=== PATIENT | male | born 1985 | race Caucasian/White ===

== ENCOUNTER 2019-02-20 10:44 | Emergency (ER) | payer MEDICARE, BC, MEDICAID ==
--- OUTSIDE RECORDS SUMMARY | 2019-02-20 10:50 | XMS REPORT | Continuity of Care Document ---
:1985 External Reference #:[id number] Author Name Rigo Roth NP (transmitted by agent of provider Kassy Ceja) Address [address], [place] [address] Care Team Providers Name Role Phone Asa Montano M.D. - Family Medicine Care Team Information [employer] [phone] Chris Robertson MD - Endocrinology, Care Team Information [employer] Diabetes & Metabolism Problems Active Problems Provider Date Localization-related epilepsy Everette Sharpe M.D. Onset: 02/28/2014 Social History Type Date Description Comments Sex Unknown ETOH Use Denies alcohol use Tobacco Use Start: Unknown Patient has never smoked Smoking Status Reviewed: 02/15/19 Patient has never smoked Allergies, Adverse Reactions, Alerts Active Allergies Reaction Severity Comments Date Gabapentin caused bladder retention. 11/16/2018 Lamictal severe shaking 12/21/2018 Inactive Allergies NKDA 02/24/2012 Medications Active Medications SIG Qnty Indications Ordering Provider Date Oxcarbazepine Take three tabs 120tabs G50.0 Rigo Roth NP 02/15/2019 300mg po twice a day Tablets Levetiracetam 1 by mouth 180tabs Everette Sharpe, 500mg twice a day [place]man Tablets Myrbetriq in tab in am Unknown 25mg Tablets ER for one week, 24HR if no better take 2 tabs in am daily History Medications Oxcarbazepine Take two in am and 120tabs Everette Ledesma 12/21/2018 - 300mg two in pm Don Sharpe 02/15/2019 Tablets Lamotrigine Take 2 tablets po 49tabs Everette Ledesma 11/16/2018 - 25mg Tablets bid a day for 1 Don Sharpe 12/20/2018 week, then 1 tablets bid for 1 week, then 1 tab daily for 1 week, then discontinue Oxcarbazepine take one tab po 77tabs Everette Ledesma 11/16/2018 - 150mg daily for one week, Don Sharpe 12/21/2018 Tablets one tab po bid for one week, then take two tabs twice a day Lamotrigine take one tab by 60tabs Everette Ledesma 10/30/2018 - 100mg Tablets mouth twice a day. Don Sharpe 11/16/2018 Lamotrigine 2 tabs (50 MG) 140tatrinidad Ledesma 10/30/2018 - 25mg Tablets twice a day for 2 Don Sharpe 11/05/2018 weeks, then 2 tabs (50 MG) in the Am and 4 tabs (100 MG) in the PM, will switch to 100 MG tabs next refill Lamotrigine 2 tabs (50 MG) 140tatrinidad Ledesma 10/02/2018 - 25mg Tablets twice a day for 2 Don Sharpe 10/30/2018 weeks, then 2 tabs (50 MG) in the Am and 4 tabs (100 MG) in the PM, will switch to 100 MG tabs next refill Lamotrigine Starter Take as directed. 49units vEerette Ledesma 09/25/2018 - Kit-Alcorn Don Sharpe 10/02/2018 42x 25 mg & 7 x 100 mg Kit Lamotrigine take 2 tabs 42tabs Everette Ledesma 09/04/2018 - 25mg Tablets Don Sharpe 10/02/2018 Gabapentin take 1 cap po in 70caps Everette Ledesma 08/27/2018 - 300mg Capsules the am, 1 cap at Don Sharpe 11/05/2018 noon, and 2 caps at hs for 1 wk, 1 cap tid for 1 wk,1 cap bid for 1 wk, 1 cap daily for 1 wk then dc Immunizations Description No Information Available Vital Signs Date Vital Result Comment 02/15/2019 2:26pm Height 67 inches 5'7" Weight 128.25 lb Heart Rate 96 /min BP Systolic Sitting 128 mmHg BP Diastolic Sitting 70 mmHg BMI (Body Mass Index) 20.1 kg/m2 12/21/2018 11:47am Height 67 inches 5'7" Weight 130.75 lb Heart Rate 76 /min BP Systolic Sitting 110 mmHg BP Diastolic Sitting 80 mmHg Respiratory Rate 20 /min BMI (Body Mass Index) 20.5 kg/m2 Results Test Acquired Date Facility Test Result H/L Range Note CBC Auto 01/11/2019 [facility] White Blood 6.3 10^3/uL Normal 3.5-10.[address] [place] [address] [phone] Red Blood Count 5.42 10^6/uL Normal 4.18-5.48 Hemoglobin 16.9 g/dL Normal 14.0-18.0 Hematocrit 47 % Normal 42-52 Mean Corpuscular Volume 87 fL Normal 80-94 Mean Corpuscular Hemoglobin 31 pg Normal 27-31 Mean Corpuscular HGB Conc 36 g/dL Normal 31-36 Red Cell Distribution Width 14 % Normal 10-15 Platelet Count 248 10^3/uL Normal 150-450 Mean Platelet Volume 8.8 fL Normal 7.4-10.4 Abs Neutrophils 4.0 10^3/uL Normal 1.5-7.7 Abs Lymphocytes 1.6 10^3/uL Normal 1.0-4.8 Abs Monocytes 0.5 10^3/uL Normal 0-0.8 Abs Eosinophils 0.1 10^3/uL Normal 0-0.6 Abs Basophils 0.1 10^3/uL Normal 0-0.2 Abs Nucleated RBC 0.0 10^3/uL Granulocyte % 63.6 % Lymphocyte % 24.8 % Monocyte % 8.8 % Eosinophil % 1.7 % Basophil % 1.1 % Nucleated Red Blood Cells % 0.2 Comp Metabolic 01/11/2019 [facility] Sodium 141 mmol/L Normal 135-[address] [place] [address] [phone] Potassium 4.2 mmol/L Normal 3.5-5.0 Chloride 104 mmol/L Normal 101-111 Co2 Carbon Dioxide 29 mmol/L Normal 22-32 Anion Gap 8 mmol/L Normal 2-11 Glucose 74 mg/dL Normal 70-100 Blood Urea Nitrogen 10 mg/dL Normal 6-24 Creatinine 0.77 mg/dL Normal 0.67-1.17 BUN/Creatinine Ratio 13.0 Normal 8-20 Calcium 9.9 mg/dL Normal 8.6-10.3 Total Protein 7.6 g/dL Normal 6.4-8.9 Albumin 4.6 g/dL Normal 3.2-5.2 Globulin 3.0 g/dL Normal 2-4 Albumin/Globulin Ratio 1.5 Normal 1-3 Total Bilirubin 0.40 mg/dL Normal 0.2-1.0 Alkaline Phosphatase 88 U/L Normal 34-104 Alt 17 U/L Normal 7-52 Ast 13 U/L Normal 13-39 Egfr Non- 117.1 >60 Egfr 141.7 >60 1 Laboratory test 01/11/2019 [facility] Trileptal 19 g/mL 3 - 35 [address] (Oxcarbazepine) [place] [address] [phone] Urinalysis 08/30/2018 [facility] Urine Color Yellow Profile [address] [place] [address] [phone] Urine Appearance Clear Urine Specific [place] 1.016 Normal 1.010-1.030 Urine pH 6.0 Normal 5-9 Urine Urobilinogen Negative Negative Urine Ketones Negative Negative Urine Protein Negative Negative Urine Leukocytes Negative Negative Urine Blood Negative Negative Urine Nitrite Negative Negative Urine Bilirubin Negative Negative Urine Glucose Negative Negative CBC Auto 08/29/2018 [facility] White Blood 6.3 10^3/uL Normal 3.5-10.[address] [place] [address] [phone] Red Blood Count 5.22 10^6/uL Normal 4.18-5.48 Hemoglobin 16.0 g/dL Normal 14.0-18.0 Hematocrit 45 % Normal 42-52 Mean Corpuscular Volume 86 fL Normal 80-94 Mean Corpuscular Hemoglobin 31 pg Normal 27-31 Mean Corpuscular HGB Conc 36 g/dL Normal 31-36 Red Cell Distribution Width 13 % Normal 10-15 Platelet Count 213 10^3/uL Normal 150-450 Mean Platelet Volume 8.5 fL Normal 7.4-10.4 Abs Neutrophils 4.1 10^3/uL Normal 1.5-7.7 Abs Lymphocytes 1.5 10^3/uL Normal 1.0-4.8 Abs Monocytes 0.5 10^3/uL Normal 0-0.8 Abs Eosinophils 0.1 10^3/uL Normal 0-0.6 Abs Basophils 0.1 10^3/uL Normal 0-0.2 Abs Nucleated RBC 0.0 10^3/uL Granulocyte % 64.7 % Lymphocyte % 24.2 % Monocyte % 8.5 % Eosinophil % 1.4 % Basophil % 1.2 % Nucleated Red Blood Cells % 0.0 Comp Metabolic 08/29/2018 [facility] Sodium 140 mmol/L Normal 135-[address] [place] [address] [phone] Potassium 3.9 mmol/L Normal 3.5-5.0 Chloride 105 mmol/L Normal 101-111 Co2 Carbon Dioxide 28 mmol/L Normal 22-32 Anion Gap 7 mmol/L Normal 2-11 Glucose 84 mg/dL Normal 70-100 Blood Urea Nitrogen 10 mg/dL Normal 6-24 Creatinine 0.74 mg/dL Normal 0.67-1.17 BUN/Creatinine Ratio 13.5 Normal 8-20 Calcium 9.6 mg/dL Normal 8.6-10.3 Total Protein 7.5 g/dL Normal 6.4-8.9 Albumin 4.6 g/dL Normal 3.2-5.2 Globulin 2.9 g/dL Normal 2-4 Albumin/Globulin Ratio 1.6 Normal 1-3 Total Bilirubin 0.70 mg/dL Normal 0.2-1.0 Alkaline Phosphatase 71 U/L Normal 34-104 Alt 19 U/L Normal 7-52 Ast 13 U/L Normal 13-39 Egfr Non- 122.6 >60 Egfr 148.3 >60 3 1 Because ethnic data is not always readily available, this report includes an eGFR for both -Americans and non- Americans. The National Kidney Disease Education Program (NKDEP) does not endorse the use of the MDRD equation for patients that are not between the ages of 18 and 70, are , have extremes of body size, muscle mass, or nutritional status, or are non- or non-. According to the National Kidney Foundation, irrespective of diagnosis, the stage of the disease is based on the level of kidney function: Stage Description GFR(mL/min/1.73 m(2)) 1 Kidney damage with normal or decreased GFR 90 2 Kidney damage with mild decrease in GFR 60-89 3 Moderate decrease in GFR 30-59 4 Severe decrease in GFR 15-29 5 Kidney failure <15 (or dialysis) 2 ADDITIONAL INFORMATION This test was developed and its performance characteristics determined by [facility] in a manner consistent with CLIA requirements. This test has not been cleared or approved by the U.S. Food and Drug Administration. Test Performed by: [facility] [address] [place] [address] Camp Boss: Alli Turner M.D. Ph.D.; CLIA# [id number] 3 Because ethnic data is not always readily available, this report includes an eGFR for both -Americans and non- Americans. The National Kidney Disease Education Program (NKDEP) does not endorse the use of the MDRD equation for patients that are not between the ages of 18 and 70, are , have extremes of body size, muscle mass, or nutritional status, or are non- or non-. According to the National Kidney Foundation, irrespective of diagnosis, the stage of the disease is based on the level of kidney function: Stage Description GFR(mL/min/1.73 m(2)) 1 Kidney damage with normal or decreased GFR 90 2 Kidney damage with mild decrease in GFR 60-89 3 Moderate decrease in GFR 30-59 4 Severe decrease in GFR 15-29 5 Kidney failure <15 (or dialysis) Procedures Description No Information Available Medical Devices Description No Information Available Encounters Type Date Location Provider Dx Diagnosis Office Visit 12/21/2018 [facility] Rigo Roth NP G50.0 Trigeminal 11:30a neuralgia Z87.820 Personal history of traumatic brain injury Office Visit 11/16/2018 [facility] Rigo Roth G50.0 Trigeminal 2:00p Clinic [facility] neuralgia Office Visit 09/04/2018 [facility] R[facility] Roth G50.0 Trigeminal 11:30a Clinic [facility] neuralgia Assessments Date Code Description Provider 02/15/2019 G50.0 Trigeminal neuralgia Riog Roth NP 12/21/2018 G50.0 Trigeminal neuralgia Rigo Roth NP 12/21/2018 Z87.820 Personal history of traumatic brain injury Rigo Roth NP 11/16/2018 G50.0 Trigeminal neuralgia Rigo Roth NP 09/04/2018 G50.0 Trigeminal neuralgia Rigo Roth NP Plan of Treatment Future Appointment(s):03/29/2019 11:00 am - Rigo Roth NP at [id number]/15/2019 - Rigo Roth NPG50.0 Trigeminal neuralgiaNew Medication: Oxcarbazepine 300 mg - Take three tabs po twice a dayFollow up:ONE MONTH. Please schedule with me and Dr. Sharpe.Recommendations:Will discuss with Dr. hSarpe. Functional Status Description No Information Available Mental Status Description No Information Available Referrals Description No Information Available
--- NOTE | 2019-02-20 10:51 | ED ---
Complex/Multi-Sys Presentation - HPI Summary HPI Summary: 33 y/o male presented to [facility] by [facility] with a complaint from parents of seizure-like symptoms beginning this morning at 0930, after medications were taken at 0830. Family states pt was "out of it" for about 15 minutes and would respond to his name by looking but could not keep attention on his parents. Pt states he can walk normally, vision is normal, and that he has been coughing for the past couple of days. Pt denies BURNS, CP, SOB, abd pain, N/V, or dysuria. He states nothing is currently bothering him. In the ambulance , his vitals were normal, he was stable, and he was A&Ox3. Pt has no Hx of diabetes and no catheter, but has a TBI from 1994, a cerebral shunt, and recent Dx of a trigeminal nerve condition. Medications reviewed; side effects include chronic shaking from medications he takes for nerve pain as well as constipation and overactive bladder. He has had no Sz since 2011, his last normal BM was yesterday morning 02/19/19, and he ate breakfast today. He sees Dr. Sharpe for his neural issues. - History Of Current Complaint Hx Obtained From: Patient, Family/Deputy County Clerk - mother, father Onset/Duration: Sudden Onset, Resolved Timing: Minutes - 15 Severity Currently: None Location: Negative Associated Signs And Symptoms: Positive: Cough - days. Negative: Headache, SOB , Chest Pain, Nausea, Vomiting, Abdominal Pain, Dysuria - Allergies/Home Medications Allergies/Adverse Reactions: Allergies Allergy/AdvReac Type Severity Reaction Status Date / Time carbamazepine [From Tegretol] Allergy See Comment Verified 02/20/19 11:06 gabapentin Allergy See Comment Verified 02/20/19 11:06 lamotrigine [From Lamictal] Allergy Shakes Verified 02/20/19 11:06 Home Medications: Home Medications Mirabegron (NF) [Myrbetriq (NF)] 25 mg PO DAILY 02/20/19 [History Confirmed ] OXcarbazepine TAB(*) [Trileptal 300 mg TAB(*)] 600 mg PO QPM 02/20/19 [History Confirmed 02/20/19] OXcarbazepine TAB(*) [Trileptal 300 mg TAB(*)] 900 mg PO QAM 02/20/19 [History Confirmed 02/20/19] Polyethylene Glycol 3350* [Miralax*] 17 gm PO DAILY 02/20/19 [History Confirmed 02/20/19] levETIRAcetam TAB* [Keppra TAB*] 500 mg PO BID 02/20/19 [History Confirmed 02/20] PMH/Surg Hx/FS Hx/Imm Hx Endocrine/Hematology History: Denies: Hx Diabetes Cardiovascular History: Denies: Hx Hypertension, Hx Pacemaker/ICD History: Denies: Hx Renal Disease Musculoskeletal History: Reports: Hx Osteoporosis Denies: Hx Rheumatoid Arthritis Sensory History: Denies: Hx Hearing Aid Psychiatric History: Denies: Hx Panic Disorder - Surgical History Surgery Procedure, Year, and Place: SHUNT '95; RT FEMUR EXTERNAL PIN; LT HUMERUS (EXTERNAL PIN);G-TUBE (REMOVED); TRACH (REMOVED); Infectious Disease History: Denies: Traveled Outside the [place] in Last 30 Days - Family History Known Family History: Positive: Hypertension - mother's side, Diabetes - mother' s side - Social History Occupation: Employed Part-time - volunteer Lives: With Family Alcohol Use: None Hx Substance Use: No Hx Tobacco Use: No Review of Systems Eyes: Negative Positive: Cough. Negative: Shortness Of Breath Negative: Abdominal Pain, Vomiting, Nausea Negative: dysuria Neurological: Other - baseline ambulation Negative: Headache All Other Systems Reviewed And Are Negative: Yes Physical Exam - Summary Physical Exam Summary: Constitutional: Well-developed, Well-nourished, Alert. (-) Distressed Skin: Warm, Dry HENT: Normocephalic; Atraumatic Eyes: Conjunctiva normal Neck: Musculoskeletal ROM normal neck. (-) JVD, (-) Stridor, (-) Tracheal deviation Cardio: Rhythm regular, rate normal, Heart sounds normal; Intact distal pulses; The pedal pulses are 2+ and symmetric. Radial pulses are 2+ and symmetric. (-) Murmur Pulmonary/Chest wall: Effort normal. (-) Respiratory distress, (-) Wheezes, (-) Rales Abd: Soft, (-) tenderness, (-) Distension, (-) Guarding, (-) Rebound Musculoskeletal: (-) Edema Lymph: (-) Cervical adenopathy Neuro: Alert, Oriented x3, baseline neural exam (Hx of TBI) Psych: Mood and affect Normal Triage Information Reviewed: Yes Vital Signs Reviewed: Yes Procedures - Sedation Patient Received Moderate/Deep Sedation with Procedure: No Complex Multi-Symp Course/Dx Course Of Treatment: 33 y/o male presented to [facility] by [facility] with a complaint from parents of seizure-like symptoms beginning this morning at 0930, after medications were taken at 0830. Family states pt was "out of it" for about 15 minutes and would respond to his name by looking but could not keep attention on his parents. Pt states he can walk normally, vision is normal , and that he has been coughing for the past couple of days. Pt denies BURNS, CP, SOB, abd pain, N/V, or dysuria. He states nothing is currently bothering him. In the ambulance, his vitals were normal, he was stable, and he was A&Ox3. Exam found baseline neural function (Hx of TBI). Dr. Sharpe was consulted at 1118 and agreed to see the pt in the office. Pt was diagnosed with constipation and fatigue, and discharged to home. - Diagnoses Provider Diagnoses: Constipation, Fatigue - Physician Notifications Discussed Care Of Patient With: Everette Sharpe Time Discussed With Above Provider: 11:18 Instructed by Provider To: Other - Pt case was discussed with Dr. Sharpe, who agrees that the case does not sound like an acute issue, and that the pt can follow up in the office for ongoing trigeminal neuralgia and pain management. Discharge ED - Sign-Out/Discharge Documenting (check all that apply): Patient Departure - dc - Discharge Plan Condition: Stable Disposition: HOME Patient Education Materials: Constipation (ED), Fatigue (ED) Referrals: Asa Montano MD [Primary Care Provider] - Everette Sharpe MD [Medical Doctor] - Additional Instructions: Follow up with Dr. Sharpe in 1-2 days. If you experience new or worsening symptoms please return to the ER. - Billing Disposition and Condition Condition: STABLE Disposition: Home - Attestation Statements Document Initiated by Bernie: Yes Documenting Scribe: Jose Eaton Provider For Whom Bernie is Documenting (Include Credential): Rajendra Conti DO Scribalexandro Attestation: Jose Villavicencio scribed for Rajendra Conti DO on 02/20/19 at 1552. Scribe Documentation Reviewed: Yes Provider Attestation: The documentation as recorded by the scribe, Jose Eaton accurately reflects the service I personally performed and the decisions made by me, Rajendra Conti, Status of Scribe Document: Viewed
[2019-02-20 12:35] VITALS: BP 121/69
== END 2019-02-20 12:34 | disposition home or self-care (01) ==
LOC: ED 10:44
DX: K59.00 Constipation, unspecified (principal); R53.83 Other fatigue; R05 Cough; Z87.820 Personal history of traumatic brain injury
CPT/HCPCS: 99282